=== PATIENT | female | born 1975 | race Caucasian/White ===

== ENCOUNTER 2024-04-07 11:19 | Emergency (ER) | payer OTHER ==
[2024-04-07 11:40] VITALS: RESP 18
--- NOTE | 2024-04-07 11:45 | ED ---
Upper Extremity HPI - General Source: patient, RN notes reviewed Mode of arrival: ambulatory Limitations: no limitations <Linda Javed - Last Filed: 04/07/24 11:44> - General Source: RN notes reviewed Mode of arrival: ambulatory - History of Present Illness MD Complaint: Injury to:: left Onset/Timin -: days(s) Other Extremity Injury: Wrist: Left Severity scale (1-10): 0 Improves With: immobilization Worsens With: movement of extremity <Jose Daniel Suazo - Last Filed: 04/07/24 14:21> - General Chief Complaint: Extremity Injury, Upper Stated Complaint: fractured wrist Time Seen by Provider: 04/07/24 11:30 - History of Present Illness Initial Comments: Quick note48 old female resents emergency department from urgent care for chief complaint of a left wrist injury. States that 6 days ago she was outside when she tripped over a football tender in her left wrist. Denies any her head or loss conscious at this time. X-rays were completed at [facility] urgent care which revealed a fracture of the left wrist. (Linda Javed) This is a 48-year-old female presenting for left wrist pain following a slip and fall x 6 days ago. Patient denies any other injuries at the time including striking head or neck pain. Patient denies seeking medical care following incident. States pain was between 8 and 10 out of 10 for the entire 6 days. Endorses some relief with Excedrin and Motrin. Patient states that she was hoping the injury would heal on its own without seeking medical care. Patient states that she recently went to an urgent care earlier today where an x-ray revealed fracture of her left wrist and was referred to orthopedics. Patient states wrist was splinted and placed in sling, resolving all previous pain. Patient endorses some numbness in fingers which resolved following splinting. States orthopedics does not accept her insurance and was advised to seek care in the ER. Denies head injury, neck injury, headache, loss of sensation, loss of motor function, distal pallor/edema. (Jose Daniel Suazo) - Related Data Home Medications Medication Instructions Recorded Confirmed Fiv-Avrh-Lgoah Acid 1 each PO DAILY 07/16/15 10/07/15 [-U Capsule] Previous Rx's Medication Instructions Recorded Acetaminophen-Codeine 300-30mg 1 tab PO Q4H PRN #30 tablet 04/02/16 [Tylenol #3] Ibuprofen [Motrin] 600 mg PO Q6HR PRN #30 tab 10/06/15 Allergies Allergy/AdvReac Type Severity Reaction Status Date / Time No Known Allergies Allergy Verified 04/07/24 11:40 Review of Systems ROS Other: All systems not noted in ROS Statement are negative. <Linda Javed - Last Filed: 04/07/24 11:44> ROS Other: All systems not noted in ROS Statement are negative. <Jose Daniel Suazo - Last Filed: 04/07/24 14:21> ROS Statement: Those systems with pertinent positive or pertinent negative responses have been documented in the HPI. Past Medical History Past Medical History: COPD Additional Past Medical History / Comment(s): ventolin inhaler prn. last used summer 2014. had seizure in 2006 after etoh and sleeping medication overdose. hx of suicide attempts x 3 last one in 2000. episode in 2006 not suicide attempt. History of Any Multi-Drug Resistant Organisms: None Reported Past Surgical History: No Surgical Hx Reported Past Anesthesia/Blood Transfusion Reactions: No Reported Reaction Additional Past Anesthesia/Blood Transfusion Reaction / Comment(s): none Past Psychological History: Anxiety, Depression Smoking Status: Current every day smoker Past Alcohol Use History: None Reported, Occasional Past Drug Use History: Marijuana - Past Family History Mother Additional Family Medical History / Comment(s): diverticuli, hearing loss in one ear since <Linda Javed - Last Filed: 04/07/24 11:44> General Exam Limitations: no limitations <Linda Javed - Last Filed: 04/07/24 11:44> General appearance: alert, in no apparent distress Head exam: Present: atraumatic, normocephalic, normal inspection Eye exam: Present: normal appearance, PERRL, EOMI. Absent: scleral icterus, conjunctival injection, periorbital swelling ENT exam: Present: normal exam, mucous membranes moist Neck exam: Present: normal inspection. Absent: tenderness, meningismus, lymphadenopathy Respiratory exam: Present: normal lung sounds bilaterally. Absent: respiratory distress, wheezes, rales, rhonchi, stridor Cardiovascular Exam: Present: regular rate, normal rhythm, normal heart sounds. Absent: systolic murmur, diastolic murmur, rubs, gallop, clicks GI/Abdominal exam: Present: soft, normal bowel sounds. Absent: distended, tenderness, guarding, rebound, rigid Extremities exam: Present: normal inspection, full ROM, tenderness (Significant tenderness with edema noted in the left distal radial wrist with dorsal displacement noted. Scattered ecchymosis noted on ventral aspect of left wrist), normal capillary refill, joint swelling, other (Distal motor or sensory of left hand intact. Radial pulse +1. Capillary refill less than 2 seconds.). Absent: pedal edema, calf tenderness Back exam: Present: normal inspection Neurological exam: Present: alert, oriented X3, CN II-XII intact Psychiatric exam: Present: normal affect, normal mood Skin exam: Present: warm, dry, intact, normal color. Absent: rash <Jose Daniel Suazo - Last Filed: 04/07/24 14:21> - General Exam Comments Initial Comments: Visual Physical Exam Vital signs reviewed General: Well-appearing, nontoxic, no acute distress. Head: Normocephalic, atraumatic Eyes: PERRLA, EOMI ENT: Airway patent Chest: Nonlabored breathing Skin: No visual rash, normal skin tone Neuro: Alert and oriented 3 Musculoskeletal: No gross abnormalities (Linda Javed) Course Vital Signs 04/07/24 11:36 Temperature 98 F Pulse Rate 82 Respiratory 18 Rate Blood Pressure 188/117 O2 Sat by Pulse 99 Oximetry Medical Decision Making <Linda Javed - Last Filed: 04/07/24 11:44> <Jose Daniel Suazo - Last Filed: 04/07/24 14:21> - Medical Decision Making I completed the quick note portion of this chart signed Linda Javed PA-C (Linda Javed) Was pt. sent in by a medical professional or institution ([facility], [facility], urgent care, hospital, or [facility]...) When possible be specific @ -Urgent care Did you speak to anyone other than the patient for history (EMS, parent, family, police, friend...)? What history was obtained from this source @ -[No] Did you review nursing and triage notes (agree or disagree)? Why? @ -[I reviewed and agree with nursing and triage notes] Were old charts reviewed (outside hosp., previous admission, EMS record, old EKG, old radiological studies, urgent care reports/EKG's, [facility] records)? Report findings @ -[No old charts were reviewed] Differential Diagnosis (chest pain, altered mental status, abdominal pain women, abdominal pain men, vaginal bleeding, weakness, fever, dyspnea, syncope, headache, dizziness, GI bleed, back pain, seizure, CVA, palpatations, mental health, musculoskeletal)? @ -Wrist fracture, wrist dislocation, occult fracture, Burleigh fracture, compression fracture EKG interpreted by me (3pts min.). @ -[As above] X-rays interpreted by me (1pt min.). @ -Left wrist x-ray shows obvious fracture with possible displacement of distal radius CT interpreted by me (1pt min.). @ -[None done] U/S interpreted by me (1pt. min.). @ -[None done] What testing was considered but not performed or refused? (CT, X-rays, U/S, labs)? Why? @ -[None] What meds were considered but not given or refused? Why? @ -[None] Did you discuss the management of the patient with other professionals (professionals i.e. , PA, [facility], lab, RT, psych nurse, psychosocial rehabilitation counselor, suction plate carrier cleaner, teacher, personnel officer, showcase maker)? Give summary @ -Spoke to orthopedics [facility] Surekha regarding patient care plan. PSYCHI[facility] states she spoke to Dr. Spain who recommended reduction and splinting. I spoke to Dr. Groves who did not see it as feasible to reduce patient's fracture based on presentation of radiographic imaging. Advised to hold on reduction as distal neurovascular and motor function is intact and patient endorses no pain with current splint and sling. Was smoking cessation discussed for >3mins.? @ -[No] Was critical care preformed (if so, how long)? @ -[No] Were there social determinants of health that impacted care today? How? (Homelessness, low income, unemployed, alcoholism, drug addiction, transportation, low edu. Level, literacy, decrease access to med. care, group home, rehab)? @ -[No] Was there de-escalation of care discussed even if they declined (Discuss DNR or withdrawal of care, Hospice)? DNR status @ -[No] What co-morbidities impacted this encounter? (DM, HTN, Smoking, COPD, CAD, Cancer, CVA, ARF, Chemo, Hep., AIDS, mental health diagnosis, sleep apnea, morbid obesity)? @ -[None] Was patient admitted / discharged? Hospital course, mention meds given and route, prescriptions, significant lab abnormalities, going to OR and other pertinent info. @ -Discharged. Removed patient's splint to perform physical exam and resplinted placing patient back into sling. Dr. Haynes advised calling orthopedics for further guidance. See above for guidance received and subsequent care. Patient discharged in sling and splint with no complaints of pain at this time. Undiagnosed new problem with uncertain prognosis? @ -[No] Drug Therapy requiring intensive monitoring for toxicity (Heparin, Nitro, Insulin, Cardizem)? @ -[No] Were any procedures done? @ -[No] Diagnosis/symptom? @ -Left distal radius closed fracture, compression fracture Acute, or Chronic, or Acute on Chronic? @ -Acute Uncomplicated (without systemic symptoms) or Complicated (systemic symptoms)? @ -Uncomplicated Side effects of treatment? @ -[No] Exacerbation, Progression, or Severe Exacerbation? @ -[No] Poses a threat to life or bodily function? How? (Chest pain, [place], [place], pneumonia, PE, COPD, DKA, ARF, appy, cholecystitis, CVA, Diverticulitis, Homicidal, Suicidal, threat to staff... and all critical care pts) @ -[No] (Jose Daniel Suazo) Disposition <Linda Javed - Last Filed: 04/07/24 11:44> Is patient prescribed a controlled substance at d/c from ED?: No Time of Disposition: 14:21 <Jose Daniel Sauzo - Last Filed: 04/07/24 14:21> Clinical Impression: Radius distal fracture, Fall from standing Disposition: HOME SELF-CARE Condition: Fair Instructions (If sedation given, give patient instructions): Wrist Injury (ED), Arm Fracture in Adults (ED) Additional Instructions: Advised follow-up with Dr. Lopez from orthopedics tomorrow for further care and casting. Referrals: None,Stated [Primary Care Provider] - 1-2 days
--- NOTE | 2024-04-07 13:25 | XR ---
EXAMINATION TYPE: XR wrist complete LT DATE OF EXAM: 04/07/2024 12:35 PM CLINICAL INDICATION: Female, 48 years old with history of fall, deformity, pain; [facility] COMPARISON: None TECHNIQUE: XR wrist complete LT; examined in the Frontal, navicular, lateral, and oblique. FINDINGS/IMPRESSION: Distal left radius fracture with dorsal angulation and possible intra-articular extension. There is s hortening present. [facility], , 04/07/2024 1:22 PM
[2024-04-07 14:42] VITALS: BP 168/99; PULSE 76; TEMP 98
== END 2024-04-07 14:41 | disposition home or self-care (01) ==
LOC: EC 11:19
CPT/HCPCS: 99283

== ENCOUNTER 2024-04-13 08:43 | Day surgery (SDC) | payer OTHER ==
[2024-04-13] MEDS: ONDANSETRON 4 MG/2 ML VIAL IVP STA (09:32)
[2024-04-13] MEDS: LACTATED RINGERS 1,000 ML BAG IV STA (09:32)
[2024-04-13] MEDS: IV FLUID CONTINUATION 1,000 ML IV ONE ×2 (09:33→13:32)
[2024-04-13] MEDS: DEXAMETHASONE SOD PHOSPHATE 4 MG/ML 1 ML VIAL IVP STA (09:33)
[2024-04-13] MEDS: SCOPOLAMINE 1 MG/72 HR PATCH TRANSDERM STA (09:38)
[2024-04-13] MEDS: MIDAZOLAM 2 MG/2 ML VIAL IV ONE (09:56)
--- NOTE | 2024-04-13 10:13 | P.ANPRN ---
Procedure Note - Anesthesia - Nerve Block Performed Left Supraclavicular Single Date of Procedure: 04/13/24 Procedure Start Time: 09:55 Procedure Stop Time: 10:11 Indication: Acute Post-Operative Pain, Requested by Surgeon Sedation Type: Sedate with meaningful contact maintained Preparation: Sterile Prep Position: Sitting Catheter: None Needle Gauge: 21 Ultrasound used to visualize needle placement: Yes Ultrasound used to observe medication spread: Yes Injectate: 0.5% Ropivacaine (see comment for volume) Blood Aspirated: No Pain Paresthesia on Injection Noted: No Resistance on Injection: Normal Image Stored and Saved: Yes Events: Uneventful and Well Tolerated (Ropivacaine 0.5% , 30 mls woth 4 mg of Decadron)
[2024-04-13] MEDS ORDERED: LIDOCAINE 1% INJ 10MG/ML (20 ML MDV) ONE (10:52)
[2024-04-13] MEDS ORDERED: DEXAMETHASONE SOD PHOSPHATE 4 MG/ML 1 ML VIAL ONE (10:52)
[2024-04-13] MEDS ORDERED: PHENYLEPHRINE 10 MG/ML VIAL ONE (10:52)
[2024-04-13] MEDS ORDERED: ROPIVACAINE 5 MG/ML 30 ML VIAL ONE (10:52)
[2024-04-13] MEDS ORDERED: ePHEDrine 50 MG/ML 1 ML VIAL ONE (10:52)
[2024-04-13] MEDS ORDERED: PROPOFOL 10 MG/ML 20 ML VIAL IV ONE (10:52)
[2024-04-13] MEDS ORDERED: MIDAZOLAM 2 MG/2 ML VIAL ONE (10:52)
[2024-04-13 13:05] VITALS: TEMP 97.2
--- NOTE | 2024-04-13 13:06 | P.OP ---
Date of Procedure: 04/13/24 Preoperative Diagnosis: Left extra-articular distal radius fracture Postoperative Diagnosis: same Procedure(s) Performed: open reduction and internal fixation of left distal radius Implants: Synthes 2.4mm variable angle locking plate Anesthesia: ANDREEA Surgeon: Bryce Jensen (Dr. Laurie Gant) Estimated Blood Loss (ml): 10 IV fluids (ml): 700 Condition: stable Disposition: PACU Indications for Procedure: Displaced, shortened, and angulated left distal radius fracture Operative Findings: displaced, shortened, and angulated distal radius fracture with moderate callous formation Description of Procedure: The patient, operative extremity, and procedure were identified in the preop holding area. The patient was then brought back to the operating room where the extremity was prepped and draped in normal sterile fashion with a well padded tourniquet on the patients brachium, this was inflated just prior to incision and released at the conclusion of the case. A formal timeout was performed and the tourniquet was inflated to 250mmHg. A longitudinal incision was made over the volar radial aspect of the wrist overlying the FCR tendon. Dissection was taken down to the flexor carpi radialis tendon. This was mobilized ulnarly and the underlying forearm fascia was incised. The branch of the radial artery was protected while the flexor tendons and muscles were swept aside to access the pronator quadratus muscle. This was released sharply off of the radius to reveal the fracture. The brachioradialis tendon was then identified proximal to its insertion onto the radial styloid. This was released to neutralize its deforming force and aid in reduction. Care was taken to protect the 1stcompartment extensor tendons. The fracture was then identified and gently cleaned of interposed tissue, callous and fracture hematoma. The fracture was extra-articular.Using the aid of a freer elevator, the fracture was reduced. The volar plate was then provisionally placed and fixed with K wires. The reduction and plate placement was confirmed on fluoroscopy. Adjustments were made as necessary. The oblong hole of the proximal plate was then filled with a nonlocking screw. The distal aspect of the plate was then filled with locking screws in the distal screw cluster. These spanned at least 75 percent of the volar dorsal width without protruding dorsally. The remaining proximal screw holes were then filled. Final fluoroscopic imaging showed good fracture reduction, hardware placement, and confirmed the removal of all provisional hardware. The wrist was then taken through a full arc of motion and noted to be stable without any catching. The DRUJ was also stable. The wound was copiously irriated with saline and wound closed with 3-0 vicryl suture and 4-0 prolene sutures. sterile dressings and a volar slab splint was then applied Patient was awoken from anesthesia and transferred to the PACU in stable condition. Plan - Discharge Summary Discharge Rx Participant: No New Discharge Prescriptions: No Action Ibuprofen [Motrin] 600 mg PO Q6HR PRN #30 tab PRN Reason: Pain [id number] [phone] [Excedrin] 2 each PO Q4HR Discharge Medication List Ibuprofen [Motrin] 600 mg PO Q6HR PRN #30 tab 10/06/15 [Rx] [id number] [phone] [Excedrin] 2 each PO Q4HR 04/11/24 [History] Follow up Appointment(s)/Referral(s): Bryce Jensen MD [STAFF PHYSICIAN] - 2 Weeks Patient Instructions/Handouts: *Surgery [facility] - (Anesthesia) Discharge Instructions Outpatient Surgery, *Surgery [facility] - Scopalamine Patch Instructions Activity/Diet/Wound Care/Special Instructions: Non weight bearing to left hand keep dressings in place until your follow up visit avoid lifting objects with your left hand You may begin to move your fingers on once pain is to a manageable level, a donaldson ndout has been provided with hand motion exercises ICE and elevation of the hand/wrist to the level of the heart as often as possible to decrease pain and swelling Ice for 20 min at a time as often as possible throughout the day A block was provided for postoperative pain by the anesthesia team, your arm will feel numb and you will have limited use of the arm while the medication is in effect, this will wear of by tomorrow A prescription pain medication has been provided for you, please follow prescription instructions Your pain medication is designed to provided you with reduction in your pain level, the medication will not eliminate ALL of your pain, the goal is to have you at a manageable pain level such that you can sleep and perform necessary daily functions Additionally you may take tylenol for relief of more minor pain A small amount of drainage or blood on your dressings is normal Please contact our office If you experience any new onset of numbness or tingling after your numbing medications wears off, your pain is uncontrolled with your current medications, you notice any pale or bluish discoloration of your fingers, large amounts of drainage or bleeding on your bandages. Discharge Disposition: HOME SELF-CARE
--- NOTE | 2024-04-13 13:26 | FL ---
EXAMINATION TYPE: FL guidance operating room, XR wrist limited LT DATE OF EXAM: 04/13/2024 Comparison: 04/07/2024 Clinical History: 48-year-old female LEFT RADIUS FX Findings: A series of 10 intraoperative fluoroscopy images showing closed reduction of the transverse and impac shanthi distal radial metaphyseal fracture. Placement of percutaneous pins and subsequently a volar plate and screw fixation with significant improvement in the degree of impaction and angulation. FLUOROSCOPY ORIF Left distal radius. Fluoro time: 56.5 sec DAP: .[address] Jensen Impression: Volar plate and screw fixation after closed reduction of impacted and dorsally angulated distal radia l metaphyseal fracture. [facility], , 04/13/2024 1:23 PM
[2024-04-13 13:53] VITALS: BP 117/78; PULSE 90; RESP 16
== END 2024-04-13 14:31 | disposition home or self-care (01) ==
LOC: OR 08:43
PROVIDERS: ATTEND Orthopaedic Surgery
CPT/HCPCS: 64415; 81025